=== PATIENT | male | born 1955 | race Caucasian/White ===

== ENCOUNTER 2016-09-23 05:29 | Observation (INO) | payer BC ==
[2016-09-16 10:28] LABS: BASOPHILS 0.9 %; BASOPHILS ABSOLUTE 0.05 10/3/uL (0.0-0.16); EOSINOPHILS 3.1 %; EOSINOPHILS ABSOLUTE 0.17 10/3/uL (0.0-0.53); LYMPHOCYTES 31.7 %; LYMPHOCYTES ABSOLUTE 1.72 10/3/uL (0.67-4.30); MEAN CORPUS HGB CONC 33.9 g/dL (32.0-36.0); MEAN CORPUSCULAR HEMOGLOB 28.8 pg (26.0-34.0); MEAN CORPUSCULAR VOLUME 85.1 fL (80-100); MEAN PLATELET VOLUME 9.3 fL (9.2-13.0); MONOCYTES 11.8 %; MONOCYTES ABSOLUTE 0.64 10/3/uL (0.21-1.20); NEUTROPHILS 52.5 %; NEUTROPHILS ABSOLUTE 2.85 10/3/uL (2.02-8.40); PLATELET COUNT 236 10/3/uL (150-400); RED CELL COUNT 5.03 10/6/uL (4.7-6.1); WHITE BLOOD CELLS 5.4 10/3/uL (4.5-10.5)
[2016-09-16 10:29] LABS: HEMATOCRIT 42.8 % (40.0-51.0); HEMOGLOBIN 14.5 g/dL (13.6-17.8); MANUAL DIFF NO %
[2016-09-16 10:35] LABS: ASCORBIC ACID (UR NOT ORDER) NEG (NEG); BILIRUBIN, URINE NEGATIVE (NEG); INTERNATIONAL NORMAL RATI 1.1 UNITS (-); KETONE, URINE NEGATIVE (NEG); LEUKOCYTE ESTERASE(NOT OR NEG (NEG); PARTIAL THROMBO TIME 29.7 SEC (22.5-37.2); WBC (NOT ORDERED) (RFLEX) < 1 (0-5)
[2016-09-16 10:36] LABS: PROTIME (NOT ORD) 14.5 SEC (12.0-14.5)
[2016-09-16 10:44] LABS: BUN (BLOOD UREA NITROGEN) 15 MG/DL (6-23); CALCIUM, SERUM 8.7 MG/DL (8.5-10.4); CHLORIDE, SERUM 106 MMOL/L (96-112); CO2 (CARBON DIOXIDE) 29 MMOL/L (24-34); CREATININE 1.02 MG/DL (0.70-1.30); GFR AFRICAN AMERICAN 92 ML/MIN (>=60); GFR NON AFRICAN AMERICAN 80 ML/MIN (>=60); POTASSIUM, SERUM 3.9 MMOL/L (3.5-5.3); SODIUM, SERUM 142 MMOL/L (135-148)
[2016-09-16 10:47] LABS: GLUCOSE, SERUM 102 MG/DL (60-99)
--- NOTE | ~2016-09-23 | OP ---
Record Of Operation [facility] [address] [place]. [address] NAME: RUBEN LAWLER : 57 STATUS : ADM IN PAT#: [id number] AGE: 61 ADM/REG DATE : 09/23/16 MR#: [id number] REPORT SERV DATE: 09/23/16 DICTATED BY: VINOD ALBARRAN DATE: 09/23/16 REPORT STATUS : Draft TRANSCRIBED BY: MODL DATE: 09/23/16 DATE OF PROCEDURE: 09/23/2016 PREOPERATIVE DIAGNOSIS: Adenocarcinoma of the prostate, clinical stage T2a, Doe score 3+4=7, maximum PSA 4.7. POSTOPERATIVE DIAGNOSIS: Adenocarcinoma of the prostate, clinical stage T2a, Doe score 3+4=7, maximum PSA 4.7. PROCEDURES: 1. Laparoscopic robot-assisted radical prostatectomy (bilateral nerve preservation). 2. Laparoscopic robot-assisted bilateral pelvic node sampling. SURGEON: Vinod Albarran M.D. FOUNTAIN MANAGER: Morteza Reveles. ANESTHESIA: General and local. BLOOD LOSS: Estimated at 125 mL. FLUID REPLACEMENT: 3 L of crystalloid. DRAINS: 18-Lithuanian Albarran catheter per urethra and a 15 mm Coy drain in prevesical space. INDICATION: 61-year-old white male, recently diagnosed with adenocarcinoma of the prostate. TECHNIQUE: The patient was identified, brought to the operating room, administered general anesthetic agent by the Anesthesia Service, intubated. He was positioned in the dorsal lithotomy position. The abdomen was previously clipped. The entire abdomen, penis, groin, scrotum, and perineum prepped and draped in the usual sterile fashion. A 16-Lithuanian Albarran catheter was passed in the bladder and left for drainage. All laparoscopic port sites were first infiltrated with 0.5% Marcaine plain. A 3-cm skin incision was made above the umbilicus and carried down through the subcutaneous tissue and the rectus fascia. Holding sutures were placed in the rectus fascia. The transverse incision was made in the fascia with an 11 blade scalpel. The underlying peritoneum was identified and opened sharply. A balloon trocar was placed into the peritoneal space, and pneumoperitoneum was created by insufflating carbon dioxide. The abdominal pressure reached 50 mmHg and held there through the entire case until otherwise specified. The patient was placed in steep Trendelenburg and then three robot arm ports and two preschool teacher assistant ports were placed under direct vision. Once ports were in position, da Tomeka robot was brought to the table and mated to the ports. I took down some adhesions from his sigmoid colon, left pelvic sidewall. I then opened the peritoneum in the cul-de-sac as it overlaid the seminal structures. The left and right vasa deferentia were dissected out and clipped proximally and transected distally. The left and right seminal vesicles were dissected out and clipped laterally. Denonvilliers fascia was opened sharply and the rectum was swept off the undersurface of the prostate all the way Record Of Operation [facility] [address] [place]. [address] NAME: RUBEN LAWLER : 57 STATUS : ADM IN PAT#: [id number] AGE: 61 ADM/REG DATE : 09/23/16 MR#: [id number] REPORT SERV DATE: 09/23/16 DICTATED BY: VINOD ALBARRAN DATE: 09/23/16 REPORT STATUS : Draft TRANSCRIBED BY: MICHELLE DATE: 09/23/16 onto apex bilaterally. I began the dissection of neurovascular bundles off the undersurface of the prostate. I then divided median umbilical ligaments and urachus and the swept bladder off the anterior abdominal wall opening the peritoneum just lateral to the median umbilical ligaments on each side all the way to the vasa deferentia bilaterally. The fat overlying the prostate gland was taken off with sharp dissection. There was an accessory pudendal artery on the right, it was spared. I opened the endopelvic fascia and developed plane between the prostate and the neurovascular bundles starting at the apex and carried this back to the posterior pedicles. The dorsal venous complex was isolated and secured with laparoscopic MARK stapling device. I switched to 30-degree down lens and I developed a plane between the bladder neck and prostate. I opened the anterior bladder neck. I elevated the Albarran catheter and elevated the prostate and came to the posterior bladder neck and carried my dissection down to expose the previously dissected out seminal structures. The posterior pedicles were secured with locking clips and divided. The prostate was now mobile all the way out to the apex. The lateral attachments of the striated sphincter were taken off the apex of prostate sharply. The urethra was divided sharply and then the posterior striated sphincter was divided. Specimen was inspected and it appeared intact and placed in a specimen-retrieval bag and held for later retrieval. I reconstructed the bladder and neck with horizontal mattress sutures of 3-0 Monocryl at the 3 o'clock and 9 o'clock position. I then lowered the abdominal pressure down to 7 mmHg. I irrigated the pelvis copiously. Fastidious hemostasis was achieved. I did a posterior reconstruction in two layers with 3-0 V-Loc. I then did a modified Van Velthoven vesicourethral anastomosis with 3-0 V-Loc. When the anastomosis was completed, I inserted a new 18-Lithuanian Albarran catheter in the bladder, inserted 12 mL of sterile water into the catheter balloon. I then switched back to a 30-degree down lens and sampled the left and right external iliac and obturator lymph nodes. Locking clips and metallic clips were used for lymphostasis and hemostasis. I then tested the bladder anastomosis and filled with 240 mL of saline. It held with just minimal extravasation. The bladder was then drained. The instrument was taken out of the robot arm port and 15 mm Coy drain was placed through that port and left in the prevesical space. The port was removed. The drain was sutured to the skin with 2-0 Prolene. The da Tomeka robot was undocked. I transferred the strings of the specimen bag out through the umbilical port. The preschool teacher assistant 12 mm port was removed and the fascia there was closed with a Elkin-Jr Endoscopic Closure System. I then took the patient out of Trendelenburg. All ports removed under low pressure. No port site bleeding was noted. I removed the balloon port and extended my fascial incision by 1 cm in each direction transversely. I then delivered the specimens out through the wound. I closed the fascia with [id number] 0 Vicryl sutures. The subcutaneous tissue of all ports were irrigated copiously. Subcutaneous tissue with larger ports closed with 3-0 Vicryl. The skin of all ports closed with 4-0 Monocryl. Dressings were applied. The catheter secured. The patient was awakened and taken to the recovery unit in stable and satisfactory condition. Record Of Operation [facility] [address] [place]. [address] NAME: BUCKYCALI MICHAELPina TORREZ : 57 STATUS : ADM IN [facility]#: [id number] AGE: 61 ADM/REG DATE : 09/23/16 MR#: [id number] REPORT SERV DATE: 09/23/16 DICTATED BY: VINOD ALBARRAN DATE: 09/23/16 REPORT STATUS : Draft TRANSCRIBED BY: MICHELLE DATE: 09/23/16 PF/MICHELLE Vinod Albarran M.D. / [id number] CC: Vinod Albarran M.D.
--- NOTE | ~2016-09-23 | HP ---
History And Physical [address] [address] NAME: RUBEN CAMPBELL : 57 STATUS : [place] [facility] [place]#: [id number] AGE: 61 ADM/REG DATE : MR#: [id number] REPORT SERV DATE: 09/20/16 DICTATED BY: VINOD ALBARRAN DATE: 09/20/16 REPORT STATUS : Draft TRANSCRIBED BY: MODL DATE: 09/20/16 DATE OF ADMISSION: 09/23/2016 CHIEF COMPLAINT: Adenocarcinoma of the prostate, clinical stage T2a, Doe score 3+ 4 = 7, PSA of 4.7. HISTORY OF PRESENT ILLNESS: Mr. Campbell is a 61-year-old white male who was recently diagnosed with adenocarcinoma of the prostate. Elevated PSA of 4.7 and a nodule on the left lobe of the prostate led to the biopsy. Biopsy revealed [place] score of 3+ 4 = 7 to the right base, left mid gland, and right apex. He had a staging CT scan of abdomen and pelvis that did not show any metastatic disease. Different treatment options regarding management of prostate cancer were proposed to the patient. He decided to proceed with laparoscopic robot-assisted radical prostatectomy and bilateral pelvic node sampling. He will be admitted after that procedure. The patient reports no trouble with erection. He denies any urinary symptoms. PAST MEDICAL HISTORY: Dyslipidemia. PAST SURGICAL HISTORY: Knee surgery bilaterally and tendon repair left arm. MEDICATIONS: Ofelia, Aleve p.r.n., and pravastatin. ALLERGIES: NO KNOWN DRUG ALLERGIES. SOCIAL HISTORY: The patient reports daily alcohol consumption. He does not smoke or chew tobacco. FAMILY HISTORY: Negative for prostate cancer. REVIEW OF SYSTEMS: He wears glasses. He has some hearing loss. PHYSICAL EXAMINATION: GENERAL: He is a well-developed, well-nourished white male in no acute distress. He has a BMI of 28. He is awake, alert, and oriented x3. HEENT: His sclerae are anicteric. NECK: Supple. LUNGS: Clear. HEART: Regular rate and rhythm. ABDOMEN: Soft and nontender. No palpable abdominal masses. No inguinal hernia. GENITOURINARY: Penis normal. Testes descended and nontender. There is some mild swelling in the left scrotum consistent with a large varicocele. The right side is normal. The prostate was mildly enlarged with induration of the left apex. LOWER EXTREMITIES: No deformities. History And Physical [address] [address] NAME: RUBEN CAMPBELL : 57 STATUS : [place] [facility] [place] PAT#: [id number] AGE: 61 ADM/REG DATE : MR#: [id number] REPORT SERV DATE: 09/20/16 DICTATED BY: VINOD ALBARRAN DATE: 09/20/16 REPORT STATUS : Draft TRANSCRIBED BY: MICHELLE DATE: 09/20/16 IMPRESSION: Adenocarcinoma of the prostate, clinical stage T2a with Doe score 7 from the left apex, left mid, left base. PLAN: Laparoscopic robot-assisted radical prostatectomy and bilateral pelvic node sampling. Potential complications of bleeding, infection, urinary incontinence, , loss of ejaculate, erectile dysfunction, and injury to adjacent structures such as bladder, ureters, rectum, colon, intestine, nerves have all been explained to the patient. Bowel obstruction complications were also explained. He consents to proceed. PF/MICHELLE Vinod Albarran M.D. / [id number] CC: Axel Marquez M.D.
[~2016-09-23 05:29] MED LIST: FISH OIL1200 MG PO; HEMOCYTET PO; IBU-200200 MG PO; RED YEAS1 PO; ZYRTEC ALLGY10 MG PO
[2016-09-24 04:39] LABS: HEMATOCRIT 39.3 % (40.0-51.0); HEMOGLOBIN 13.1 g/dL (13.6-17.8)
[2016-09-24 04:42] LABS: CALCIUM, SERUM 8.1 MG/DL (8.5-10.4); CHLORIDE, SERUM 109 MMOL/L (96-112); CREATININE 0.95 MG/DL (0.70-1.30); GFR AFRICAN AMERICAN 100 ML/MIN (>=60); GFR NON AFRICAN AMERICAN 87 ML/MIN (>=60); POTASSIUM, SERUM 4.2 MMOL/L (3.5-5.3); SODIUM, SERUM 143 MMOL/L (135-148)
[2016-09-24 04:43] LABS: BUN (BLOOD UREA NITROGEN) 9 MG/DL (6-23); CO2 (CARBON DIOXIDE) 23 MMOL/L (24-34); GLUCOSE, SERUM 171 MG/DL (60-99)
[2016-09-24] MEDS ORDERED: NORCO1 TA2 PO (08:25)
== END 2016-09-24 09:26 | disposition home or self-care (01) ==
LOC: SDC 05:29 → SDC/OF 11:49 → 4SO 12:41
PROVIDERS: Urology
PROC: 07BC4ZX Excision of Pelvis Lymphatic, Percutaneous Endoscopic Approach, Diagnostic (ICD-10-PCS; 2016-09-23)
PROC: 0VT04ZZ Resection of Prostate, Percutaneous Endoscopic Approach (ICD-10-PCS; principal; 2016-09-23 06:30)
DX: C61 Malignant neoplasm of prostate (principal); E78.5 Hyperlipidemia, unspecified; E78.00 Pure hypercholesterolemia, unspecified; Z98.890 Other specified postprocedural states; Z88.8 Allergy status to other drugs, medicaments and biological substances; Z79.899 Other long term (current) drug therapy; Z96.653 Presence of artificial knee joint, bilateral
CPT/HCPCS: 80048; 81001; 83735; 85014; 85018; 85025; 85610; 85730; 88307; 88309; 93005; 96372; A9270-GY; G0378; J0690; J1170; J1885; J2250; J2405; J2710; J3010